=== PATIENT | male | born 1965 ===

== ENCOUNTER 2018-06-01 10:31 | Day surgery (SDC) | payer OTHER ==
[2018-06-01] MEDS ORDERED: Iohexol 350mgl/ml 50 ML ONE ×2 (11:05→11:33)
[2018-06-01] MEDS ORDERED: Lidocaine 2% Inj (20ml) ONE ×2 (11:05→11:32)
[2018-06-01] MEDS ORDERED: Iodixanol 320 MG/ML 200 ML BOTTLE IV ONE ×2 (11:05→11:33)
[2018-06-01] MEDS ORDERED: Nitroglycerin 50mg in D5W 50 MG/250 ML BOTTLE IV ONE (11:05)
[2018-06-01] MEDS ORDERED: Midazolam 2 MG/2 ML VIAL ONE ×2 (11:44→12:07)
[2018-06-01] MEDS ORDERED: Sodium Chloride 0.9% 1,000 ML IV SCH ×2 (13:45)
--- NOTE | 2018-06-01 14:04 | CARDCATH ---
PROCEDURE DATE: 06/01/2018 HISTORY: The patient is a 52-year-old male who presented with unstable angina. He underwent a cardiac catheterization at [facility] where he was found to have a 99% proximal RCA stenosis. Along with his elevated troponins which is consistent with a non-STEMI, the patient was transferred here for PTCA. PROCEDURE: Coronary aortography followed by PTCA and stent of an RCA with a drug-eluting stent. The left femoral artery was cannulated with 6-Japanese sheath. There were no complications. Findings on catheterization revealed a right dominant circulation. The RCA was markedly tortuous vessel with a 90% stenoses with a long 90% stenoses noted. The guiding catheter was placed in the ostium of the RCA and 0.014 ATW wire was used to cross the critical lesion. A 2.5 balloon was utilized to predilate the lesion at 8 ounces of pressure. After balloon deflation removal, a 3.5 x 22 mm drug-eluting stent was placed and deployed at 15 ounces of pressure. Postdilatation was performed with a 4.0 noncompliant balloon in the proximal portion of the stent. Repeat coronary aortography after balloon deflation and removal revealed an excellent result with no residual stenosis and AVELINO III flow. Angio-Seal was used to close the femoral artery site. The patient tolerated the procedure well. In summary, the procedure was successful for PTCA and stent of a critically stenosed proximal RCA stenoses with a long drug-eluting stent. Given these findings, the patient will need to remain on aspirin indefinitely and Plavix for least a year and undergo a strict cardiac risk reduction program. The patient will be transferred back to [facility] at 06:30 this evening. As an addendum, I performed moderate sedation which included the presence of an independent trained observer that assisted in monitoring the patient's level of consciousness and physiologic status. After administration of Versed and fentanyl, my intra-service time was 30 minutes. SECOND ADDENDUM The [place] you was measured to be 239 which made his Plavix subtherapeutic. We will start the patient on Effient. Shane Willson MD [facility] # [id number]
[2018-06-01 17:08] VITALS: TEMP 98.6
[2018-06-01 18:30] VITALS: BP 171/94
[2018-06-01 18:50] VITALS: PULSE 86; RESP 21; O2SAT 98
--- NOTE | 2018-06-04 11:10 | CARD ---
APPROVED REPORT Date of service: 06/01/2018 EKG Measurement Heart [id number] <Conclusion> Normal sinus rhythm Normal ECG
== END 2018-06-01 19:00 | disposition short-term general hospital (02) ==
LOC: CATH 10:31 → CCU 13:17 → CATH 19:00
PROVIDERS: ATTEND Internal Medicine Cardiovascular Disease
DX: I21.4 Non-ST elevation (NSTEMI) myocardial infarction (principal); I25.110 Atherosclerotic heart disease of native coronary artery with unstable angina pectoris
CPT/HCPCS: 85576; 93005; 99152; C1725 ×2; C1760; C1769 ×2; C1874; C1887; C2629; C9600; J0583; J1644; J2250; J3010; J7030; Q9966; Q9967